=== PATIENT | male | born 1975 | race Caucasian/White ===

== ENCOUNTER 2019-06-16 13:12 | Inpatient (IN) ==
[2019-06-16] MEDS ORDERED: NS 1,000 ML IV ONE (13:23)
[2019-06-16 14:28] LABS: BASO# 0.04 X1000 (0.0-0.2); BASO% 0.6 % (0.0-0.8); EOS# 0.11 X1000 (0.0-0.7); EOS% 1.7 % (0.0-10.0); HEMATOCRIT 44.1 % (42.0-52.0); HEMOGLOBIN 15.4 g/dL (14.0-18.0); LYMPH% 18.4 % (20.5-51.1); MCH 32.9 PG (27-31); MCHC 34.9 g/dL (33-37); MCV 94.2 FL (81-99); MONO# 0.51 X1000 (0.11-0.59); MONO% 7.8 % (1.7-9.3); MPV 11.8 FL (7.4-10.4); NEUT# 4.67 X1000 (1.4-6.5); NEUT% 71.5 % (42.2-75.2); PLT 155 X1000 (130-400); RBC 4.68 XMIL (4.7-6.1); WBC 6.53 X1000 (4.8-10.8)
--- NOTE | 2019-06-16 14:28 | Diag Imaging Result Doc PS360 ---
EXAM: CT HEAD W/O CONTRAST 06/16/2019 HISTORY: altered mental status TECHNIQUE: This exam was performed using automated exposure control, adjustment of mA or kV according to patient size, and/or use of iterative reconstruction technique. COMMENT: There are no previous studies available for comparison. There is encephalomalacia in the right temporal lobe and the right frontal lobe. There is no evidence of bleed or abnormal extra-axial fluid collection. The visualized paranasal sinuses are clear. The calvarium is intact. IMPRESSION: Encephalomalacic changes in the right hemisphere which may be due to previous infarct or other insult. No evidence of acute disease. Electronically signed by Jae Vega 06/16/2019 2:26 PM
--- NOTE | 2019-06-16 14:40 | Diag Imaging Result Doc PS360 ---
EXAM: CHEST-1 VIEW 06/16/2019 HISTORY: altered mental status TECHNIQUE: AP chest COMMENT: There is no evidence of acute cardiac or pulmonary disease. There are no previous studies. IMPRESSION: No acute disease. Electronically signed by Jae Vega 06/16/2019 2:38 PM
--- NOTE | 2019-06-16 14:42 | Diag Imaging Result Doc PS360 ---
EXAM: PELVIS 06/16/2019 HISTORY: trauma TECHNIQUE: AP pelvis COMMENT: There is an apparent chronic intertrochanteric fracture of the left femur. A pseudoarthrosis has developed in this location. There is also considerable coarsening of the trabecula and subcutaneous cortical cyst formation. There is generalized osteopenia. There is an apparent [place] filter visible in the upper portion of the image and there may be a [place]co coil just below the right transverse process of L3. There are numerous phleboliths. IMPRESSION: Old left intertrochanteric fracture. Electronically signed by Jae Vega 06/16/2019 2:39 PM
[2019-06-16 14:49] LABS: AGAP 10; ALB/GLOB RATIO 2.2; ALBUMIN 4.3 g/dL (3.5-5.0); ALKALINE PHOSPHATASE 71 U/L (32-122); BUN 11 mg/dL (8-22); CALCIUM 9.2 mg/dL (8.8-10.2); CHLORIDE 106 mmol/L (98-107); CK PROFILE 36 U/L (24-204); COSMO 286; CREATININE 0.7 mg/dL (0.7-1.2); ESTIMATED GFR > 60; GLUCOSE 120 mg/dL (70-104); GOT 10 U/L (10-34); GPT 8 U/L (10-44); LIPASE 24 U/L (13-60); POTASSIUM 3.9 mmol/L (3.5-5.1); SODIUM 143 mmol/L (136-145); TCO2 27 mmol/L (25-35); TOTAL BILIRUBIN 0.24 mg/dL (0.20-1.00); TOTAL PROTEIN 6.3 g/dL (6.3-8.3)
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
--- NOTE | 2019-06-16 18:10 | EKG Report ---
Test Performed on : 06/16/2019 4:20:58 PM Test Reason : ED. NO EKG ORDER FOR MUSE Blood Pressure : / mmHG Vent. Rate : 053 BPM Atrial Rate : 053 BPM P-R Int : 142 ms QRS Dur : 084 ms QT Int : 422 ms P-R-T Axes : 034 071 077 degrees QTc Int : 395 ms Sinus bradycardia. Otherwise normal ECG No previous ECGs available Unconfirmed Result
[2019-06-16 18:28] LABS: URINE SOURCE VOIDED
[2019-06-16 18:32] LABS: BILIRUBIN URINE NEGATIVE (NEGATIVE); BLOOD URINE NEGATIVE (NEGATIVE); COLOR YELLOW; GLUCOSE URINE NEGATIVE (NEGATIVE); KETONE URINE 10 mg/dL (NEGATIVE); LEUKOCYTES URINE NEGATIVE (NEGATIVE); NITRITE URINE NEGATIVE (NEGATIVE); PH URINE 6.5; PROTEIN URINE TRACE mg/dL (NEGATIVE); SP GRAVITY URINE 1.031; TURBIDITY URINE CLEAR (CLEAR); UROBILINOGEN URINE 3 mg/dL (NORMAL)
[2019-06-16 18:33] LABS: UR EPITHELIAL CELLS <10 /HPF (<10); URINE BACTERIA NEGATIVE /HPF; URINE RBC <10 /HPF (<10); URINE WBC <10 /HPF (<10)
[2019-06-16] MEDS: NS 1,000 ML IV SCH (19:46)
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
[2019-06-16 21:21] LABS: UR AMPHETAMINES QUAL NONE DETECTED (NONE DETECT); UR BARBITUATES QUAL NONE DETECTED (NONE DETECT); UR BENZODIAZEPIN QUAL NONE DETECTED (NONE DETECT); UR CANNABINOIDS QUAL NONE DETECTED (NONE DETECT); UR COCAINE QUAL NONE DETECTED (NONE DETECT); UR METHADONE QUAL NONE DETECTED (NONE DETECT); UR OPIATES QUAL NONE DETECTED (NONE DETECT); UR OXYCODONE QUAL NONE DETECTED (NONE DETECT); UR PCP QUAL NONE DETECTED (NONE DETECT)
--- NOTE | 2019-06-16 21:49 | Diag Imaging Result Doc PS360 ---
EXAM: CT PELVIS W/O CONTRAST HISTORY: left hip fracture TECHNIQUE: CT bony pelvis without contrast COMPARISON: None. FINDINGS: Apparent chronic intertrochanteric fracture to the left femur. The femoral head component remains in the acetabulum. Lucent areas in the femoral head and neck. Femoral shaft is superiorly placed and rotated. The bones are osteopenic. IMPRESSION: Chronic intertrochanteric fracture to the left femur. This exam was performed using automated exposure control, adjustment of mA or kV according to patient size, and/or use of iterative reconstruction technique. Electronically signed by Ken Alas 06/16/2019 9:47 PM
[2019-06-17] MEDS ORDERED: ZOFRAN IV PRN ×2 (01:00→16:12)
[2019-06-17] MEDS: TYLENOL PO PRN ×2 (01:15→17:16)
[2019-06-17 06:00] LABS: BASO# 0.05 X1000 (0.0-0.2); BASO% 0.9 % (0.0-0.8); EOS# 0.25 X1000 (0.0-0.7); EOS% 4.7 % (0.0-10.0); HEMATOCRIT 42.2 % (42.0-52.0); HEMOGLOBIN 14.5 g/dL (14.0-18.0); LYMPH# 1.67 X1000 (1.2-3.4); LYMPH% 31.3 % (20.5-51.1); MCH 32.7 PG (27-31); MCHC 34.4 g/dL (33-37); MCV 95.3 FL (81-99); MONO# 0.44 X1000 (0.11-0.59); MONO% 8.3 % (1.7-9.3); MPV 12.2 FL (7.4-10.4); NEUT# 2.92 X1000 (1.4-6.5); NEUT% 54.8 % (42.2-75.2); PLT 136 X1000 (130-400); RBC 4.43 XMIL (4.7-6.1); WBC 5.33 X1000 (4.8-10.8)
[2019-06-17 06:23] LABS: AGAP 9; BUN 9 mg/dL (8-22); CALCIUM 8.2 mg/dL (8.8-10.2); CHLORIDE 111 mmol/L (98-107); COSMO 282; CREATININE 0.5 mg/dL (0.7-1.2); ESTIMATED GFR > 60; GLUCOSE 69 mg/dL (70-104); POTASSIUM 3.4 mmol/L (3.5-5.1); SODIUM 143 mmol/L (136-145); TCO2 23 mmol/L (25-35)
--- NOTE | 2019-06-17 09:57 | Diag Imaging Result Doc PS360 ---
EXAM: MRI BRAIN W/WO CONTRAST HISTORY: encephalomalacia, stroke TECHNIQUE: MRI brain with and without contrast. Axial, sagittal, and coronal images obtained in multiple sequences. These are followed the post contrasted axial and coronal images. COMPARISON: Head CT from 06/16/2019 FINDINGS: No recent infarct. Encephalomalacia posteriorly in the right temporal lobe. Likely small old infarct at the junction of the right frontal and parietal lobes. No hydrocephalus. No mass or midline shift no enhancing lesion on the post contrasted images. No epidural or subdural fluid collection. Normal orbits. No sinus opacification. Minimal mucosal thickening. 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
[2019-06-17] MEDS ORDERED: KLOR-CON PO ONE (10:28)
[2019-06-17] MEDS: NS 1,000 ML IV SCH ×2 (10:47→17:17)
--- NOTE | 2019-06-17 14:17 | Diag Imaging Result Doc PS360 ---
EXAM: KNEE 3 VIEWS LEFT HISTORY: knee pain TECHNIQUE: Left knee, three views COMPARISON: None. FINDINGS: The bones are osteopenic. No fracture. No dislocation. No other bony abnormality. IMPRESSION: Unexplained osteopenia. Electronically signed by Ken Alas 06/17/2019 2:15 PM
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
--- NOTE | 2019-06-17 18:07 | ORTHOPAEDICS PROGRESS NOTE ---
DATE: 06/17/2019 I saw and examined Mr. Romero today. He does have a 1-month-old left intertrochanteric hip fracture with nonunion. Fix for this would be best served with a total hip replacement. The patient completely refuses hip replacement or any surgery at this time. I have discussed with him that it will not likely improve, and he will have some shortening and chronic pain in the left lower extremity without this. He is aware of this and refuses any operative intervention. In that regard, we have discussed with the hospitalist mobilizing him with a walker or a wheelchair as comfort permits. He can follow up with us in the office if he changes his mind and would like to proceed with possible surgical hip replacement of his hip in the future. Thanks again for asking us to be involved in his care. Otherwise, we will be signing off at this point. cc: Enmanuel Knowles MD
[2019-06-17] MEDS ORDERED: ATIVAN IV PRN (23:24)
[2019-06-18] MEDS: NS 1,000 ML IV SCH ×4 (03:22→20:46)
[2019-06-18 06:14] LABS: BASO# 0.02 X1000 (0.0-0.2); BASO% 0.4 % (0.0-0.8); EOS# 0.24 X1000 (0.0-0.7); EOS% 4.6 % (0.0-10.0); HEMATOCRIT 42.6 % (42.0-52.0); HEMOGLOBIN 14.6 g/dL (14.0-18.0); LYMPH# 1.67 X1000 (1.2-3.4); LYMPH% 32.2 % (20.5-51.1); MCH 33.2 PG (27-31); MCHC 34.3 g/dL (33-37); MCV 96.8 FL (81-99); MONO# 0.47 X1000 (0.11-0.59); MONO% 9.1 % (1.7-9.3); MPV 12.4 FL (7.4-10.4); NEUT# 2.78 X1000 (1.4-6.5); NEUT% 53.7 % (42.2-75.2); PLT 139 X1000 (130-400); WBC 5.18 X1000 (4.8-10.8)
[2019-06-18 06:43] LABS: AGAP 8; ALB/GLOB RATIO 1.7; ALBUMIN 3.6 g/dL (3.5-5.0); ALKALINE PHOSPHATASE 58 U/L (32-122); BUN 6 mg/dL (8-22); CALCIUM 8.6 mg/dL (8.8-10.2); CHLORIDE 110 mmol/L (98-107); COSMO 282; CREATININE 0.5 mg/dL (0.7-1.2); ESTIMATED GFR > 60; GLUCOSE 84 mg/dL (70-104); GOT 10 U/L (10-34); GPT 7 U/L (10-44); POTASSIUM 3.8 mmol/L (3.5-5.1); SODIUM 143 mmol/L (136-145); TCO2 25 mmol/L (25-35); TOTAL BILIRUBIN 0.24 mg/dL (0.20-1.00); TOTAL PROTEIN 5.7 g/dL (6.3-8.3)
[2019-06-18 06:52] LABS: TSH 2.01 uIUmL (0.27-4.20)
[2019-06-18] MEDS ORDERED: POTASSIUM CHLORIDE 20 MEQ, MAGNESIUM SULFATE 2 GM, THIAMINE 100 MG, FOLIC ACID 1 MG, M.... IV SCH ×6 (11:00)
[2019-06-18] MEDS: CYANOCOBALAMIN IM SCH (11:37)
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
[2019-06-19] MEDS: NS 1,000 ML IV SCH (04:23)
[2019-06-19] MEDS: CYANOCOBALAMIN IM SCH (08:30)
[2019-06-19 08:41] VITALS: BP 122/81
== END 2019-06-19 09:00 | DRG 56 ==
LOC: SUPCPDRO → ED 13:12 → SUATTDRO 19:50 → 4N 19:50
PROVIDERS: ATTEND Internal Medicine